=== PATIENT | female | born 1980 | race Caucasian/White ===

== ENCOUNTER 2017-08-27 08:45 | Day surgery (SDC) | payer OTHER ==
[~2017-08-27 08:45] MED LIST: ACETAMINOPHEN 1000 MG/100 ML IVPB
[2017-08-27] MEDS ORDERED: MIDAZOLAM 1 MG/ML 2 ML INJ (10:51)
[2017-08-27] MEDS ORDERED: FENTAnyl 50 MCG/ML VIAL (10:51)
[2017-08-27] MEDS ORDERED: OXYCODONE/ACETAMINOPHEN (5/325) TAB PO ×2 (11:00)
[2017-08-27] MEDS ORDERED: MEPERIDINE 25 MG INJ IV (11:00)
[2017-08-27] MEDS ORDERED: ONDANSETRON 4 MG INJ IV (11:00)
[2017-08-27] MEDS ORDERED: FENTAnyl 50 MCG/ML VIAL IV ×2 (11:00)
[2017-08-27] MEDS ORDERED: DEXAMETHASONE 4 MG/ML 1 ML INJ (11:24)
[2017-08-27] MEDS ORDERED: METOCLOPRAMIDE 10 MG INJ (11:27)
[2017-08-27] MEDS ORDERED: ONDANSETRON 4 MG INJ (11:27)
[2017-08-27] MEDS ORDERED: FAMOTIDINE 20 MG INJ (11:28)
[2017-08-27] MEDS: FENTAnyl 50 MCG/ML VIAL IV ×2 (12:34→12:44)
== END 2017-08-27 13:50 | disposition home or self-care (01) ==
LOC: SDS 08:45
DX: N93.9 Abnormal uterine and vaginal bleeding, unspecified (principal); I10 Essential (primary) hypertension; E11.9 Type 2 diabetes mellitus without complications
CPT/HCPCS: 58120; 82962; 84703; 86850; 86900; 86901; 88305